=== PATIENT | female | born 1990 | race Caucasian/White ===

== ENCOUNTER 2018-11-28 14:40 | Observation (INO) | payer OTHER ==
[2018-11-28 16:00] LABS: BASO % 0.3 % (0.0-2.0); EOS % 0.1 % (0.0-4.0); HEMOGLOBIN 12.8 g/dL (11.0-16.0); LYMPH # 0.9 K/uL (1.0-4.3); LYMPH % 8.7 % (20.0-40.0); MEAN CELL VOLUME 84.2 fL (81.0-99.0); MEAN CORPUSCULAR HEMOGLOBIN 28.6 pg (27.0-31.0); MEAN CORPUSCULAR HGB CONC 33.9 g/dL (33.0-37.0); MEAN PLATELET VOLUME 8.2 fL (7.2-11.7); MONO # 0.3 K/uL (0.0-0.8); MONO % 3.1 % (0.0-10.0); NEUT # 8.9 K/uL (1.8-7.0); NEUT % 87.8 % (50.0-75.0); PLATELET COUNT 290 K/uL (130-400); RBC 4.47 Mil/uL (3.80-5.20); RED CELL DISTRIBUTION WIDTH 12.5 % (11.5-14.5); WHITE BLOOD COUNT 10.1 K/uL (4.8-10.8)
--- NOTE | 2018-11-28 16:11 | C.PDOC ---
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 Patient reports that she was at home by herself, speaking on the phone with her parents, while sitting on a chair. Patient woke up 15-20 minutes later (per parents who stayed on phone) on the floor with a bruised lip. Patient's arrived home 30 minutes after the incident, and states that the patient was not herself after the incident, but returned to baseline. Patient reports going to the PMD's office for a checkup, where the PMD advised them to present to the ED. Rather than coming to the ED, the patient decided to stop at home for lunch where she had her second ?seizure while sitting down. Patient's witnessed the seizure and stated that it lasted 15-20 minutes again and consisted of her "whole body shaking". Patient's reports that a little while after the seizure the patient returned to baseline. pt has no prior hx seizures, no hx head trauma. no tongue lacerations, no incontinence. Time Seen by Provider: 11/28/18 15:02 Chief Complaint (Nursing): Syncope History Per: Patient, Family () History/Exam Limitations: no limitations Onset/Duration Of Symptoms: Mins Current Symptoms Are (Timing): Gone Number Of Syncopal Episodes: 2 Activity At Onset Of Symptoms: Sitting Associated Symptoms Preceding Syncopal Episode: No Predromal Symptoms (Sudden Onset) Seizure Or Post-ictal Symptoms: Generalized Seizure Activity Fall Associated With With Symptoms: Yes, Positive Injury (lip bruise) Past Medical History Reviewed: Historical Data, Nursing Documentation, Vital Signs Vital Signs: Last Vital Signs Temp 98.2 F 11/28/18 14:54 Pulse 100 H 11/28/18 14:54 Resp 20 11/28/18 14:54 BP 126/73 11/28/18 14:54 Pulse Ox 100 11/28/18 14:54 - Medical History PMH: Hypothyroidism Surgical History: No Surg Hx Family History: States: No Known Family Hx - Social History Hx Alcohol Use: No Hx Substance Use: No - Immunization History Hx Tetanus Toxoid Vaccination: No Hx Influenza Vaccination: No Hx Pneumococcal Vaccination: No Review Of Systems Constitutional: Negative for: Fever, Chills Eyes: Negative for: Pain, Vision Change ENT: Negative for: Throat Pain Cardiovascular: Negative for: Chest Pain Respiratory: Negative for: Cough Gastrointestinal: Negative for: Nausea, Abdominal Pain, Diarrhea Genitourinary: Negative for: Incontinence Musculoskeletal: Positive for: Back Pain Skin: Negative for: Rash Neurological: Positive for: Seizures (possible) Physical Exam - Physical Exam Appears: Non-toxic, No Acute Distress Skin: Normal Color, Warm, Dry Head: Atraumatic, Normacephalic Eye(s): bilateral: Normal Inspection, PERRL, EOMI Ear(s): Bilateral: Normal (no hemotympanum, no battles sign) Nose: Normal Oral Mucosa: Moist Tongue: Normal Appearing, No Bite, No Laceration Lips: Contusion (lower lip) Neck: Normal, No Midline Cervical Tenderness, Paracervical Tenderness (mild left side paracervical), Supple Chest: Symmetrical, No Tenderness Cardiovascular: Rhythm Regular, No Murmur Respiratory: Normal Breath Sounds, No Rales, No Rhonchi, No Wheezing Gastrointestinal/Abdominal: Soft, No Tenderness, No Guarding, No Rebound Extremity: Normal ROM, No Pedal Edema, No Calf Tenderness Neurological/Psych: Oriented x3, Normal Speech, Normal Cognition, Normal Cranial Nerves, No Cerebellar Signs, Normal Motor, Normal Sensation, Normal Reflexes, Other (normal, rapid alternating movements, nl [id number] test. ) ED Course And Treatment - Laboratory Results Result Diagrams: 11/28/18 15:49 11/28/18 15:49 ECG: Viewed By Me ECG Interpretation: Abnormal Interpretation Of ECG: Normal sinus rhythm at 77bpm with premature atrial complexes. ST/T wave abnormality, consider anterior ischemia. 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 - Scribe Statement The provider has reviewed the documentation as recorded by the Scribe (Renny Kearns) All medical record entries made by the Scribe were at my direction and personally dictated by me. I have reviewed the chart and agree that the record accurately reflects my personal performance of the history, physical exam, medical decision making, and the department course for this patient. I have also personally directed, reviewed, and agree with the discharge instructions and disposition.
[2018-11-28 16:21] LABS: ALB/GLOB RATIO 1.5 (1.0-2.1); ALBUMIN 4.9 g/dL (3.5-5.0); ALT/SGPT 29 U/L (9-52); AST/SGOT 25 U/L (14-36); BLOOD UREA NITROGEN 6 mg/dL (7-17); CALCIUM 9.8 mg/dl (8.6-10.4); GFR NON-AFRICAN AMERICAN > 60
[2018-11-28 16:29] LABS: BANDS 1 % (0-2); LYMPHOCYTE 12 % (20-40); MONOCYTE 5 % (0-10); NEUTROPHIL 82 % (50-75); PLATELET ESTIMATE NORMAL (NORMAL); TOTAL CELLS COUNTED 100
[2018-11-28 16:35] LABS: SQUAMOUS EPITHIAL 1 /hpf (0-5); URINE BACTERIA RARE (<OCC); URINE BILIRUBIN NEGATIVE (NEGATIVE); URINE BLOOD 3+ (NEGATIVE); URINE COLOR Straw (YELLOW); URINE GLUCOSE (UA) NORMAL (Normal); URINE HYALINE CAST 0-2 /lpf (0-2); URINE LEUKOCYTE ESTERASE NEG Leu/uL (Negative); URINE PROTEIN NEGATIVE (NEGATIVE); URINE UROBILINOGEN NORMAL mg/dL (0.2-1.0)
[2018-11-28 16:44] LABS: URINE CLARITY Hazy (Clear)
--- NOTE | 2018-11-28 17:20 | CT ---
Date of service: 11/28/2018 PROCEDURE: CT HEAD WITHOUT CONTRAST. HISTORY: possible new onset seizure COMPARISON: None available. TECHNIQUE: Axial computed tomography images were obtained through the head/brain without intravenous contrast. Radiation dose: Total exam DLP = 947.35 mGy-cm. This CT exam was performed using one or more of the following dose reduction techniques: Automated exposure control, adjustment of the mA and/or kV according to patient size, and/or use of iterative reconstruction technique. FINDINGS: HEMORRHAGE: No intracranial hemorrhage. BRAIN: No mass effect or edema. The ibrahim-white matter differentiation appears intact. Please note that MRI with diffusion imaging is more sensitive in the detection of acute ischemic event. VENTRICLES: No hydrocephalus. CALVARIUM: Unremarkable. PARANASAL SINUSES: Unremarkable as visualized. No significant inflammatory changes. MASTOID AIR CELLS: Unremarkable as visualized. No inflammatory changes. OTHER FINDINGS: None. IMPRESSION: No acute intracranial pathology identified.
[2018-11-28 22:36] VITALS: RESP 20
[2018-11-29] MEDS: Levothyroxine 150 MCG TAB PO SCH (07:42)
[2018-11-29] MEDS: Enoxaparin 40 mg Syringe SC SCH (09:09)
[2018-11-29] MEDS ORDERED: Gadodiamide 287 mg/ml 20 ml IV ONE (14:48)
--- NOTE | 2018-11-29 15:42 | MRI ---
Date of service: 11/29/2018 PROCEDURE: MRI BRAIN WITH AND WITHOUT CONTRAST HISTORY: seizure COMPARISON: None available. TECHNIQUE: Multiplanar, multisequence MR images of the brain were obtained with and without intravenous contrast enhancement (Omniscan 12 cc). FINDINGS: HEMORRHAGE: None DWI: No evidence of an acute or early subacute infarction. BRAIN PARENCHYMA: Intrinsic signal throughout the ibrahim and white matter structures above below the tentorium appears within normal limits including the brainstem. There is no mass effect, parenchymal edema or loss of the corticomedullary differentiation. Midline brain anatomy appears within normal limits including the corpus callosum, brainstem and craniocervical junction. There is no suspicious extra-axial fluid collection identified. ENHANCEMENT: No abnormal intracranial enhancement. VENTRICLES: Unremarkable. No hydrocephalus. CRANIUM: Unremarkable. ORBITS: Grossly unremarkable. PARANASAL SINUSES/MASTOIDS: Clear VASCULAR SYSTEM: Skull base flow voids intact. OTHER FINDINGS: None . IMPRESSION: Unremarkable pre and post contrast enhanced MRI of the brain.
--- NOTE | 2018-11-29 15:48 | CP.PCM.HP ---
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 Patient reports that she was at home by herself, speaking on the phone with her parents, while sitting on a chair. Patient woke up 15-20 minutes later (per parents who stayed on phone) on the floor with a bruised lip. Patient's arrived home 30 minutes after the incident, and states that the patient was not herself after the incident, but returned to baseline. Patient reports going to the PMD's office for a checkup, where the PMD advised them to present to the ED. Rather than coming to the ED, the patient decided to stop at home for lunch where she had her second ?seizure while sitting down. Patient's witnessed the seizure and stated that it lasted 15-20 minutes again and consisted of her "whole body shaking". Patient's reports that a little while after the seizure the patient returned to baseline. pt has no prior hx seizures, no hx head trauma. no tongue lacerations, no incontinence. Present on Admission - Present on Admission Any Indicators Present on Admission: No Review of Systems - Review of Systems All systems: reviewed and no additional remarkable complaints except (as mentioned in HPI) Past Patient History - Past Medical History & Family History Past Medical History?: Yes - Past Social History Smoking Status: Never Smoked - ENDOCRINE/METABOLIC Hx Hypothyroidism: Yes - MUSCULOSKELETAL/RHEUMATOLOGICAL Hx Falls: Yes Hx Herniated Disk: Yes - PSYCHIATRIC Hx Substance Use: No - SURGICAL HISTORY Hx Surgeries: No - ANESTHESIA Hx Anesthesia: No Hx Anesthesia Reactions: No Hx Malignant Hyperthermia: No Has any member of the family had a problem w/ anesthesia?: No Meds Allergies/Adverse Reactions: Allergies Allergy/AdvReac Type Severity Reaction Status Date / Time No Known Allergies Allergy Verified 11/28/18 14:53 Physical Exam - Head Exam Head Exam: NORMAL INSPECTION - Eye Exam Eye Exam: Normal appearance - ENT Exam ENT Exam: Mucous Membranes Moist - Respiratory Exam Respiratory Exam: Clear to Auscultation Bilateral - Cardiovascular Exam Cardiovascular Exam: REGULAR RHYTHM, +S1, +S2 - GI/Abdominal Exam GI & Abdominal Exam: Normal Bowel Sounds, Soft - Extremities Exam Extremities exam: Positive for: normal inspection Results - Vital Signs Recent Vital Signs: Last Vital Signs Temp 98.3 F 11/29/18 08:00 Pulse 78 11/29/18 08:00 Resp 20 11/29/18 08:00 BP 107/67 11/29/18 08:00 Pulse Ox 99 11/29/18 08:00 - Labs Result Diagrams: 11/28/18 15:49 11/28/18 15:49 Labs: Laboratory Results - last 24 hr 11/28/18 11/28/18 11/28/18 15:49 15:49 16:19 WBC 10.1 RBC 4.47 Hgb 12.8 Hct 37.7 MCV 84.2 MCH 28.6 MCHC 33.9 RDW 12.5 Plt Count 290 MPV 8.2 Neut % (Auto) 87.8 H Lymph % (Auto) 8.7 L Turner % (Auto) 3.1 Eos % (Auto) 0.1 Baso % (Auto) 0.3 Neut # (Auto) 8.9 H Lymph # (Auto) 0.9 L Turner # (Auto) 0.3 Eos # (Auto) 0.0 Baso # (Auto) 0.0 Neutrophils % (Manual) 82 H Band Neutrophils % 1 Lymphocytes % (Manual) 12 L Monocytes % (Manual) 5 Platelet Estimate Normal Sodium 138 Potassium 3.9 Chloride 106 Carbon Dioxide 23 Anion Gap 13 BUN 6 L Creatinine 0.5 L Est GFR ( Amer) > 60 Est GFR (Non-Af Amer) > 60 Random Glucose 106 H Calcium 9.8 Total Bilirubin 0.5 AST 25 ALT 29 Alkaline Phosphatase 71 Total Protein 8.2 Albumin 4.9 Globulin 3.3 Albumin/Globulin Ratio 1.5 Urine Color Straw Urine Clarity Hazy Urine pH 6.0 Ur Specific [place] 1.011 Urine Protein Negative Urine Glucose (UA) Normal Urine Ketones Negative Urine Blood 3+ H Urine Nitrate Negative Urine Bilirubin Negative Urine Urobilinogen Normal Ur Leukocyte Esterase Neg Urine WBC (Auto) 4 Urine RBC (Auto) 87 H Ur Squamous Epith Cells 1 Urine Bacteria Rare Hyaline Casts 0-2 Assessment & Plan (1) New onset seizure Status: Acute - Assessment and Plan (Free Text) Plan: Neurology Consult Start Kehara MRI brain Ativan PRN DVT/GI prophalaxis
--- NOTE | 2018-11-29 18:55 | CP.PCM.CON ---
History of Present Illness - History of Present Illness History of Present Illness: 28 yr old woman with two seizures today, Past Patient History - Past Medical History & Family History Past Medical History?: Yes - Past Social History Smoking Status: Never Smoked - ENDOCRINE/METABOLIC Hx Hypothyroidism: Yes - MUSCULOSKELETAL/RHEUMATOLOGICAL Hx Falls: Yes Hx Herniated Disk: Yes - PSYCHIATRIC Hx Substance Use: No - SURGICAL HISTORY Hx Surgeries: No - ANESTHESIA Hx Anesthesia: No Hx Anesthesia Reactions: No Hx Malignant Hyperthermia: No Has any member of the family had a problem w/ anesthesia?: No Meds Allergies/Adverse Reactions: Allergies Allergy/AdvReac Type Severity Reaction Status Date / Time No Known Allergies Allergy Verified 11/28/18 14:53 - Medications Medications: Current Medications Acetaminophen (Tylenol 325mg Tab) 650 mg PO Q6 PRN PRN Reason: Pain, Mild (1-3) Last Admin: 11/29/18 01:00 Dose: 650 mg Enoxaparin Sodium (Lovenox) 40 mg SC DAILY [facility] Last Admin: 11/29/18 09:09 Dose: 40 mg Levetiracetam (Keppra) 500 mg PO BID [facility] Last Admin: 11/29/18 17:35 Dose: 500 mg Levothyroxine Sodium (Synthroid) 150 mcg PO DAILY@0630 [facility] Last Admin: 11/29/18 07:42 Dose: Not Given Results - Vital Signs Recent Vital Signs: Last Vital Signs Temp 98.7 F 11/29/18 15:00 Pulse 71 11/29/18 15:00 Resp 20 11/29/18 15:00 BP 102/65 11/29/18 15:00 Pulse Ox 97 11/29/18 15:00 - Labs Result Diagrams: 11/28/18 15:49 11/28/18 15:49
[2018-11-30] MEDS: Levothyroxine 150 MCG TAB PO SCH (05:48)
--- NOTE | 2018-11-30 05:52 | CARD ---
APPROVED REPORT Date of service: 11/28/2018 EKG Measurement Heart [id number] <Conclusion> Sinus rhythm with premature atrial complexes ST & T wave abnormality, consider anterior ischemia Abnormal ECG
[2018-11-30 08:46] VITALS: BP 100/64; TEMP 98; O2SAT 97
--- NOTE | 2018-11-30 09:44 | PCM.VEEG ---
Video EEG - Procedure Start Date: 11/29/18 End Date: 11/30/18 - Impression Impression: This is an abnormal awake and sleep 24 hour video EEG. THere are freqeunt runs of frontal dominant poorly formed spike and wave discharges that are reflective of a primary generalized epilepsy.
[2018-11-30] MEDS: Enoxaparin 40 mg Syringe SC SCH (10:33)
[2018-11-30 12:18] VITALS: PULSE 82
--- NOTE | 2018-11-30 12:59 | CP.PCM.PN ---
Subjective - Date & Time of Evaluation Date of Evaluation: 11/30/18 Time of Evaluation: 12:55 - Subjective Subjective: Neuro Follow-Up Note: Mrs. Craft was evaluated this afternoon with Dr. Lei. at bedside. She states that she feels well. All imaging and VEEG results discussed at length with pt ad ; all questions answered by Dr. Lei. Pt denies h/a, dizziness, visual changes, chest pain, sob, abd pain, n/v/d. Objective - Vital Signs/Intake and Output Vital Signs (last 24 hours): Temp Pulse Resp BP Pulse Ox 98 F 82 20 100/64 97 11/30/18 08:00 11/30/18 12:00 11/30/18 08:00 11/30/18 08:00 11/30/18 08:00 Intake and Output: 11/30/18 11/30/18 06:59 18:59 Intake Total 0 Balance 0 - Medications Medications: Current Medications Acetaminophen (Tylenol 325mg Tab) 650 mg PO Q6 PRN PRN Reason: Pain, Mild (1-3) Last Admin: 11/29/18 01:00 Dose: 650 mg Enoxaparin Sodium (Lovenox) 40 mg SC DAILY [facility] Last Admin: 11/30/18 10:33 Dose: Not Given Levetiracetam (Keppra) 750 mg PO BID [facility] Levothyroxine Sodium (Synthroid) 150 mcg PO DAILY@0630 [facility] Last Admin: 11/30/18 05:48 Dose: 150 mcg - Labs Labs: 11/28/18 15:49 11/28/18 15:49 - Constitutional Appears: Well, Non-toxic, No Acute Distress - Head Exam Head Exam: ATRAUMATIC, NORMAL INSPECTION, NORMOCEPHALIC - Eye Exam Eye Exam: EOMI, Normal appearance Pupil Exam: NORMAL ACCOMODATION - ENT Exam ENT Exam: Mucous Membranes Moist - Neck Exam Neck Exam: Full ROM - Respiratory Exam Respiratory Exam: NORMAL BREATHING PATTERN - Extremities Exam Extremities Exam: Full ROM - Back Exam Back Exam: Full ROM - Neurological Exam Neurological Exam: Alert, Awake, CN II-XII Intact, Oriented x3, Reflexes Normal Neuro motor strength exam: Left Upper Extremity: 5, Right Upper Extremity: 5, Left Lower Extremity: 5, Right Lower Extremity: 5 Additional comments: no focal neuro deficits no tremors during time of evakl - Psychiatric Exam Psychiatric exam: Normal Affect, Normal Mood - Skin Skin Exam: Normal Color Assessment and Plan (1) Primary generalized epilepsy Assessment & Plan: -All imaging reviewed. VEEG reviewed and discussed with Dr. Lei (see VEEG report). -Will increase Keppra to 750 mg PO BID. -Pt may be d/c home on Keppra 750 mg PO BID. -F/U with Dr. Lei in the office within 2-3 weeks to re-evaluate seizure activity. -Reconsult prn. Thank you for allowing us to participate in this pt's care. Case discussed with Dr. Lei Status: Acute
--- NOTE | 2018-11-30 13:48 | CP.PCM.PN ---
Subjective - Date & Time of Evaluation Date of Evaluation: 11/30/18 Time of Evaluation: 13:48 - Subjective Subjective: PATIENT SEEN AND EXAMINED AT THE BEDSIDE Objective - Vital Signs/Intake and Output Vital Signs (last 24 hours): Temp Pulse Resp BP Pulse Ox 98 F 82 20 100/64 97 11/30/18 08:00 11/30/18 12:00 11/30/18 08:00 11/30/18 08:00 11/30/18 08:00 Intake and Output: 11/30/18 11/30/18 06:59 18:59 Intake Total 0 Balance 0 - Medications Medications: Current Medications Acetaminophen (Tylenol 325mg Tab) 650 mg PO Q6 PRN PRN Reason: Pain, Mild (1-3) Last Admin: 11/29/18 01:00 Dose: 650 mg Enoxaparin Sodium (Lovenox) 40 mg SC DAILY [facility] Last Admin: 11/30/18 10:33 Dose: Not Given Levetiracetam (Keppra) 750 mg PO BID [facility] Levothyroxine Sodium (Synthroid) 150 mcg PO DAILY@0630 [facility] Last Admin: 11/30/18 05:48 Dose: 150 mcg - Labs Labs: 11/28/18 15:49 11/28/18 15:49 Assessment and Plan - Assessment and Plan (Free Text) Assessment: FOLLOW UP WITH DR REAL IN HIS OFFICE ----CALL FOR APPOINTMENT FOLLOW UP WITH DR ALSTON IN HER OFFICE IN 2-3 WEEKS ----CALL FOR APPOINTMENT CONTINUE HOME MEDICATION NEW PRESCRIPTION GIVEN KEPPRA 750 MG BY MOUTH TWICE A DAY FOR SEIZURE ACTIVITY TOLERATED CALL DR REAL OR PMD OR GO TO THE EMERGENCY ROOM IF SYMPTOM RETURN OR WORSENING
--- NOTE | 2018-11-30 16:32 | CP.PCM.DIS ---
Provider - Provider Date of Admission: 11/28/18 17:33 Attending physician: Ivan Stanton MD Consults: 11/29/18 17:21 Neurology Consult Routine Comment: Consulting Provider: Víctor Alston Consulting Physician: Víctor Alston Reason for Consult: Seizure Diagnosis - Discharge Diagnosis (1) New onset seizure Status: Acute Hospital Course - Lab Results Lab Results: Most Recent Lab Values WBC 10.1 K/uL (4.8-10.8) 11/28/18 15:49 RBC 4.47 Mil/uL (3.80-5.20) 11/28/18 15:49 Hgb 12.8 g/dL (11.0-16.0) 11/28/18 15:49 Hct 37.7 % (34.0-47.0) 11/28/18 15:49 MCV 84.2 fL (81.0-99.0) 11/28/18 15:49 MCH 28.6 pg (27.0-31.0) 11/28/18 15:49 MCHC 33.9 g/dL (33.0-37.0) 11/28/18 15:49 RDW 12.5 % (11.5-14.5) 11/28/18 15:49 Plt Count 290 K/uL (130-400) 11/28/18 15:49 MPV 8.2 fL (7.2-11.7) 11/28/18 15:49 Neut % (Auto) 87.8 % (50.0-75.0) H 11/28/18 15:49 Lymph % (Auto) 8.7 % (20.0-40.0) L 11/28/18 15:49 Barron % (Auto) 3.1 % (0.0-10.0) 11/28/18 15:49 Eos % (Auto) 0.1 % (0.0-4.0) 11/28/18 15:49 Baso % (Auto) 0.3 % (0.0-2.0) 11/28/18 15:49 Neut # (Auto) 8.9 K/uL (1.8-7.0) H 11/28/18 15:49 Lymph # (Auto) 0.9 K/uL (1.0-4.3) L 11/28/18 15:49 Barron # (Auto) 0.3 K/uL (0.0-0.8) 11/28/18 15:49 Eos # (Auto) 0.0 K/uL (0.0-0.7) 11/28/18 15:49 Baso # (Auto) 0.0 K/uL (0.0-0.2) 11/28/18 15:49 Neutrophils % (Manual) 82 % (50-75) H 11/28/18 15:49 Band Neutrophils % 1 % (0-2) 11/28/18 15:49 Lymphocytes % (Manual) 12 % (20-40) L 11/28/18 15:49 Monocytes % (Manual) 5 % (0-10) 11/28/18 15:49 Platelet Estimate Normal (NORMAL) 11/28/18 15:49 Sodium 138 mmol/L (132-148) 11/28/18 15:49 Potassium 3.9 mmol/L (3.6-5.2) 11/28/18 15:49 Chloride 106 mmol/L (98-107) 11/28/18 15:49 Carbon Dioxide 23 mmol/L (22-30) 11/28/18 15:49 Anion Gap 13 (10-20) 11/28/18 15:49 BUN 6 mg/dL (7-17) L 11/28/18 15:49 Creatinine 0.5 mg/dL (0.7-1.2) L 11/28/18 15:49 Est GFR ( Amer) > 60 11/28/18 15:49 Est GFR (Non-Af Amer) > 60 11/28/18 15:49 POC Glucose (mg/dL) 94 mg/dL (65-110) 11/28/18 14:49 Random Glucose 106 mg/dL (65-105) H 11/28/18 15:49 Calcium 9.8 mg/dl (8.6-10.4) 11/28/18 15:49 Total Bilirubin 0.5 mg/dL (0.2-1.3) 11/28/18 15:49 AST 25 U/L (14-36) 11/28/18 15:49 ALT 29 U/L (9-52) 11/28/18 15:49 Alkaline Phosphatase 71 U/L (38-126) 11/28/18 15:49 Total Protein 8.2 g/dL (6.3-8.3) 11/28/18 15:49 Albumin 4.9 g/dL (3.5-5.0) 11/28/18 15:49 Globulin 3.3 gm/dL (2.2-3.9) 11/28/18 15:49 Albumin/Globulin Ratio 1.5 (1.0-2.1) 11/28/18 15:49 Urine Color Straw (YELLOW) 11/28/18 16:19 Urine Clarity Hazy (Clear) 11/28/18 16:19 Urine pH 6.0 (5.0-8.0) 11/28/18 16:19 Ur Specific [place] 1.011 (1.003-1.030) 11/28/18 16:19 Urine Protein Negative mg/dL (NEGATIVE) 11/28/18 16:19 Urine Glucose (UA) Normal mg/dL (Normal) 11/28/18 16:19 Urine Ketones Negative mg/dL (NEGATIVE) 11/28/18 16:19 Urine Blood 3+ (NEGATIVE) H 11/28/18 16:19 Urine Nitrate Negative (NEGATIVE) 11/28/18 16:19 Urine Bilirubin Negative (NEGATIVE) 11/28/18 16:19 Urine Urobilinogen Normal mg/dL (0.2-1.0) 11/28/18 16:19 Ur Leukocyte Esterase Neg Klever/uL (Negative) 11/28/18 16:19 Urine WBC (Auto) 4 /hpf (0-5) 11/28/18 16:19 Urine RBC (Auto) 87 /hpf (0-3) H 11/28/18 16:19 Ur Squamous Epith Cells 1 /hpf (0-5) 11/28/18 16:19 Urine Bacteria Rare (<OCC) 11/28/18 16:19 Hyaline Casts 0-2 /lpf (0-2) 11/28/18 16:19 Discharge Exam - Head Exam Head Exam: ATRAUMATIC, NORMAL INSPECTION, NORMOCEPHALIC Discharge Plan - Discharge Medications Prescriptions: levETIRAcetam [Keppra] 750 mg PO BID 30 Days tab - Follow Up Plan Condition: STABLE Disposition: HOME/ ROUTINE Instructions: Seizures, Adult (DC), Seizures, Levetiracetam Additional Instructions: FOLLOW UP WITH DR STANTON IN HIS OFFICE ----CALL FOR APPOINTMENT FOLLOW UP WITH DR ALSTON IN HER OFFICE IN 2-3 WEEKS ----CALL FOR APPOINTMENT CONTINUE HOME MEDICATION NEW PRESCRIPTION GIVEN KEPPRA 750 MG BY MOUTH TWICE A DAY FOR SEIZURE ACTIVITY TOLERATED CALL DR STANTON OR PMD OR GO TO THE EMERGENCY ROOM IF SYMPTOM RETURN OR WORSENING Referrals: Ivan Stanton MD [Staff Provider] - Rah Allen MD [Staff Provider] - Víctor Alston MD [Staff Provider] -
== END 2018-11-30 16:54 | disposition home or self-care (01) ==
LOC: C.ER 14:40 → C.9E 17:33 → C.5S 22:28
PROVIDERS: ADMIT Internal Medicine Critical Care Medicine; ATTEND Internal Medicine Critical Care Medicine
DX: G40.409 Other generalized epilepsy and epileptic syndromes, not intractable, without status epilepticus (principal); R55 Syncope and collapse; E03.9 Hypothyroidism, unspecified; M51.26 Other intervertebral disc displacement, lumbar region
CPT/HCPCS: 70450; 70553; 80053; 81001; 81025; 82948; 85025; 93005; 96372; 99285; A9579; G0378; J1650